=== PATIENT | female | born 1950 | race Caucasian/White ===

== ENCOUNTER 2016-05-27 15:52 | Emergency (ER) | payer MEDICARE, BC ==
--- NOTE | 2016-05-27 17:46 | Emergency Department Record ---
History of Present Illness - General Chief Complaint: Fall Injury Stated Complaint: FALL Time Seen by Provider: 05/27/16 15:58 Source: Patient Mode of Arrival: EMS Limitations: No limitations - History of Present Illness Initial Comments: pt had dialysis today and afterward had anear syncope where she dropped to the ground and injured her foot. she states this has happened to her before after dialysis. Complaint: Fall Onset/Timin -: Hour(s) Fall From: Standing When Fall Occurred: Just prior to arrival Fall Witnessed: Yes, by bystander Place Fall Occurred: Home Loss of Consciousness: Unsure Prolonged Down Time?: No Symptoms Prior to Fall: None Location - Extremities: Left: Foot Severity: Moderate Severity scale (1-10): 7 Quality: Aching Context: Other Associated Symptoms: Denies - [place] Coma Scale Eye Response: (4) Open spontaneously Motor Response: (6) Obeys commands Verbal Response: (5) Oriented Nancy Total: 15 - Related Data Home Medications Medication Instructions Recorded Confirmed Last Taken Aspirin [Aspirin EC] 81 mg PO DAILY 05/27/16 05/27/16 Unknown Atorvastatin Calcium [Lipitor] 20 mg PO DAILY 05/27/16 05/27/16 Unknown Calcitriol 0.25 mcg PO DAILY 05/27/16 05/27/16 Unknown Fluvoxamine Maleate [Fluvoxamine 200 mg PO BID 05/27/16 05/27/16 Unknown Maleate ER] Folic Acid/Vit Bcomp,C [Renal 0.8 mg PO DAILY 05/27/16 05/27/16 Unknown Vitamin Tablet] Isosorbide Mononitrate [Imdur] 30 mg PO DAILY 05/27/16 05/27/16 Unknown Levothyroxine Sodium [Synthroid] 50 mcg PO DAILY 05/27/16 05/27/16 Unknown Metoprolol Succinate 12.5 mg PO DAILY 05/27/16 05/27/16 Unknown Midodrine HCl [Midodrine HCl] 10 mg PO ASDIR 05/27/16 05/27/16 Unknown Pantoprazole Sodium [Protonix] 40 mg PO BID 05/27/16 05/27/16 Unknown Pregabalin [Lyrica] 150 mg PO DAILY 05/27/16 05/27/16 Unknown Allergies Allergy/AdvReac Type Severity Reaction Status Date / Time Penicillins Allergy HIVES Verified 05/27/16 16:12 Travel Screening - Travel/Exposure Within Last 30 Days Have you traveled within the last 30 days?: No Review of Systems Reviewed: No additional complaints except as noted below Constitutional: Reports: As per HPI. Denies: Chills, Fever, Malaise, Night sweats, Weakness, Weight change Eyes: Reports: As per HPI. Denies: Eye discharge, Eye pain, Photophobia, Vision change ENT: Reports: As per HPI. Denies: Congestion, Dental pain, Ear pain, Epistaxis , Hearing loss, Throat pain Respiratory: Reports: As per HPI. Denies: Cough, Dyspnea, Hemoptysis, Stridor, Wheezes Cardiovascular: Reports: As per HPI. Denies: Arrhythmia, Chest pain, Dyspnea on exertion, Edema, Murmurs, Orthopnea, Palpitations, Paroxysmal nocturnal dyspnea, Rheumatic Fever, Syncope Endocrine: Reports: As per HPI. Denies: Fatigue, Heat or cold intolerance, Polydipsia, Polyuria Gastrointestinal: Reports: As per HPI. Denies: Abdominal pain, Constipation, Diarrhea, Hematemesis, Hematochezia, Melena, Nausea, Vomiting Genitourinary: Reports: As per HPI. Denies: Abnormal menses, Discharge, Dyspareunia, Dysuria, Frequency, Hematuria, Incontinence, Retention, Urgency Musculoskeletal: Reports: As per HPI. Denies: Arthralgia, Back pain, Gout, Joint swelling, Myalgia, Neck pain Skin: Reports: As per HPI. Denies: Bruising, Change in color, Change in hair/ nails, Lesions, Pruritus, Rash Neurological: Reports: As per HPI. Denies: Abnormal gait, Confusion, Headache, Numbness, Paresthesias, Seizure, Tingling, Tremors, Vertigo, Weakness Psychiatric: Reports: As per HPI. Denies: Anxiety, Auditory hallucinations, Depression, Homicidal thoughts, Suicidal thoughts, Visual hallucinations Hematological/Lymphatic: Reports: As per HPI. Denies: Anemia, Blood Clots, Easy bleeding, Easy bruising, Swollen glands Past Medical History - SOCIAL HISTORY Smoking Status: Never smoker Alcohol Use: None Drug Use: None - RESPIRATORY Hx Respiratory Disorders: No - CARDIOVASCULAR Hx Cardio Disorders: Yes Hx Abnormal EKG: Yes Hx Chest Pain: Yes Hx Heart Attack: Yes Hx Hypertension: Yes - NEURO Hx Neuro Disorders: No - GI Hx GI Disorders: Yes Hx Reflux: Yes - Hx Genitourinary Disorders: Yes Hx Renal Disease: Yes - ENDOCRINE Hx Endocrine Disorders: Yes Hx Diabetes: Yes - MUSCULOSKELETAL Hx Musculoskeletal Disorders: No - PSYCH Hx Psych Problems: Yes Hx Anxiety: Yes - HEMATOLOGY/ONCOLOGY Hx Hematology/Oncology Disorders: Yes Family Medical History Any Significant Family History?: No Physical Exam - General General Appearance: Alert, Oriented x3, Cooperative, Mild distress - Head Head exam: Normal inspection - Eye Eye exam: Normal appearance, PERRL, EOMI Pupils: Normal accommodation - ENT ENT exam: Normal exam, Mucous membranes moist, Normal external ear exam, Normal orophraynx Ear exam: Normal external inspection. negative: External canal tenderness Nasal Exam: Normal inspection. negative: Discharge, Sinus tenderness Mouth exam: Normal external inspection, Tongue normal Teeth exam: Normal inspection. negative: Dental caries Throat exam: Normal inspection. negative: Tonsillar erythema, Tonsillar exudate - Neck Neck exam: Normal inspection, Full ROM. negative: Tenderness - Respiratory Respiratory exam: Normal lung sounds bilaterally. negative: Respiratory distress - Cardiovascular Cardiovascular Exam: Regular rate, Normal rhythm, Normal heart sounds - GI/Abdominal GI/Abdominal exam: Soft, Normal bowel sounds. negative: Tenderness - Rectal Rectal exam: Deferred - exam: Deferred - Extremities Extremities exam: Normal capillary refill, Tenderness, Other (fistula present). negative: Full ROM Image of Feet: 1 - tender, charcot foot - Back Back exam: Reports: Normal inspection, Full ROM. Denies: Muscle spasm, Rash noted, Tenderness - Neurological Neurological exam: Alert, CN II-XII intact, Normal gait, Oriented X3 - Psychiatric Psychiatric exam: Normal affect, Normal mood - Skin Skin exam: Dry, Intact, Normal color, Warm Course Vital Signs 05/27/16 16:18 Temperature 97.5 F L Pulse Rate [ 82 Pulse Ox Probe] Respiratory 16 Rate Blood Pressure 85/54 [Right Arm] Pulse Ox 100 - Reevaluation(s) Reevaluation #1: 05/27/16 19:03 d/w dr hunter Medical Decision Making - Management Options MDM Management: Additional Work-up Planned (e.g. ADM/Transfer/OP Study) - Data Complexity MDM Data: Labs Ordered and/or Reviewed, X-Ray Ordered and/or Reviewed - Lab Data Result diagrams: 05/27/16 16:29 05/27/16 16:29 - Radiology Data Radiology results: Report reviewed, Image reviewed Disposition Disposition: Transfer Clinical Impression: Dialysis patient Bimalleolar fracture of left ankle Qualifiers: Encounter type: initial encounter Fracture type: closed Qualified Code(s): S82.842A - Displaced bimalleolar fracture of left lower leg, initial encounter for closed fracture Syncope Qualifiers: Syncope type: unspecified Qualified Code(s): R55 - Syncope and collapse Disposition: Acute Care Hospital Transfer Transfer To: [facility] Reason For Transfer: needs orthopedics and nephrology Accepting Physician: dr hunter Time Discussed w/Accepting Physician: 19:03 Forms: Patient Portal Access
--- NOTE | 2016-05-27 19:08 | Emergency Department Record ---
History of Present Illness - General Chief Complaint: Fall Injury Stated Complaint: FALL Time Seen by Provider: 05/27/16 15:58 Source: Patient Mode of Arrival: EMS - History of Present Illness Onset/Timin -: Hour(s) Fall From: Standing When Fall Occurred: Just prior to arrival Fall Witnessed: Yes, by bystander Place Fall Occurred: Home Loss of Consciousness: Unsure Prolonged Down Time?: No Symptoms Prior to Fall: None Location - Extremities: Left: Foot Severity: Moderate Severity scale (1-10): 7 Quality: Aching Context: Other Associated Symptoms: Denies - [place] Coma Scale Eye Response: (4) Open spontaneously Motor Response: (6) Obeys commands Verbal Response: (5) Oriented Alvis[place] Total: 15 - Related Data Home Medications Medication Instructions Recorded Confirmed Last Taken Aspirin [Aspirin EC] 81 mg PO DAILY 05/27/16 05/27/16 Unknown Atorvastatin Calcium [Lipitor] 20 mg PO DAILY 05/27/16 05/27/16 Unknown Calcitriol 0.25 mcg PO DAILY 05/27/16 05/27/16 Unknown Fluvoxamine Maleate [Fluvoxamine 200 mg PO BID 05/27/16 05/27/16 Unknown Maleate ER] Folic Acid/Vit Bcomp,C [Renal 0.8 mg PO DAILY 05/27/16 05/27/16 Unknown Vitamin Tablet] Isosorbide Mononitrate [Imdur] 30 mg PO DAILY 05/27/16 05/27/16 Unknown Levothyroxine Sodium [Synthroid] 50 mcg PO DAILY 05/27/16 05/27/16 Unknown Metoprolol Succinate 12.5 mg PO DAILY 05/27/16 05/27/16 Unknown Midodrine HCl [Midodrine HCl] 10 mg PO ASDIR 05/27/16 05/27/16 Unknown Pantoprazole Sodium [Protonix] 40 mg PO BID 05/27/16 05/27/16 Unknown Pregabalin [Lyrica] 150 mg PO DAILY 05/27/16 05/27/16 Unknown Allergies Allergy/AdvReac Type Severity Reaction Status Date / Time Penicillins Allergy HIVES Verified 05/27/16 16:12 Travel Screening - Travel/Exposure Within Last 30 Days Have you traveled within the last 30 days?: No Review of Systems Constitutional: Reports: As per HPI. Denies: Chills, Fever, Malaise, Night sweats, Weakness, Weight change Eyes: Reports: As per HPI. Denies: Eye discharge, Eye pain, Photophobia, Vision change ENT: Reports: As per HPI. Denies: Congestion, Dental pain, Ear pain, Epistaxis , Hearing loss, Throat pain Respiratory: Reports: As per HPI. Denies: Cough, Dyspnea, Hemoptysis, Stridor, Wheezes Cardiovascular: Reports: As per HPI. Denies: Arrhythmia, Chest pain, Dyspnea on exertion, Edema, Murmurs, Orthopnea, Palpitations, Paroxysmal nocturnal dyspnea, Rheumatic Fever, Syncope Endocrine: Reports: As per HPI. Denies: Fatigue, Heat or cold intolerance, Polydipsia, Polyuria Gastrointestinal: Reports: As per HPI. Denies: Abdominal pain, Constipation, Diarrhea, Hematemesis, Hematochezia, Melena, Nausea, Vomiting Genitourinary: Reports: As per HPI. Denies: Abnormal menses, Discharge, Dyspareunia, Dysuria, Frequency, Hematuria, Incontinence, Retention, Urgency Musculoskeletal: Reports: As per HPI. Denies: Arthralgia, Back pain, Gout, Joint swelling, Myalgia, Neck pain Skin: Reports: As per HPI. Denies: Bruising, Change in color, Change in hair/ nails, Lesions, Pruritus, Rash Neurological: Reports: As per HPI. Denies: Abnormal gait, Confusion, Headache, Numbness, Paresthesias, Seizure, Tingling, Tremors, Vertigo, Weakness Psychiatric: Reports: As per HPI. Denies: Anxiety, Auditory hallucinations, Depression, Homicidal thoughts, Suicidal thoughts, Visual hallucinations Hematological/Lymphatic: Reports: As per HPI. Denies: Anemia, Blood Clots, Easy bleeding, Easy bruising, Swollen glands Past Medical History - SOCIAL HISTORY Smoking Status: Never smoker Alcohol Use: None Drug Use: None - RESPIRATORY Hx Respiratory Disorders: No - CARDIOVASCULAR Hx Cardio Disorders: Yes Hx Abnormal EKG: Yes Hx Chest Pain: Yes Hx Heart Attack: Yes Hx Hypertension: Yes - NEURO Hx Neuro Disorders: No - GI Hx GI Disorders: Yes Hx Reflux: Yes - Hx Genitourinary Disorders: Yes Hx Renal Disease: Yes - ENDOCRINE Hx Endocrine Disorders: Yes Hx Diabetes: Yes - MUSCULOSKELETAL Hx Musculoskeletal Disorders: No - PSYCH Hx Psych Problems: Yes Hx Anxiety: Yes - HEMATOLOGY/ONCOLOGY Hx Hematology/Oncology Disorders: Yes Family Medical History Any Significant Family History?: No Physical Exam - General Limitations: No limitations Course Vital Signs 05/27/16 05/27/16 16:18 17:47 Temperature 97.5 F L Pulse Rate [ 82 85 Pulse Ox Probe] Respiratory 16 16 Rate Blood Pressure 85/54 85/54 [Right Arm] Pulse Ox 100 100 - Reevaluation(s) Reevaluation #1: 05/27/16 19:07 pt has refused any pain medication Medical Decision Making - Lab Data Result diagrams: 05/27/16 16:29 05/27/16 16:29 Disposition Clinical Impression: Dialysis patient Bimalleolar fracture of left ankle Qualifiers: Encounter type: initial encounter Fracture type: closed Qualified Code(s): S82.842A - Displaced bimalleolar fracture of left lower leg, initial encounter for closed fracture Syncope Qualifiers: Syncope type: unspecified Qualified Code(s): R55 - Syncope and collapse Disposition: Acute Care Hospital Transfer Forms: Patient Portal Access
[2016-05-27] MEDS ORDERED: HYDROMORPHONE HCL 1 MG/ML CPJ IM ONE (19:20)
[2016-05-27] MEDS ORDERED: PROMETHAZINE HCL 25 MG/ML VIAL IM ONE (19:20)
--- NOTE | 2016-05-31 08:02 | RADIOLOGY REPORT ---
EXAM: LEFT FOOT HISTORY: INJURY. TECHNIQUE: Three views of the left foot were performed. FINDINGS: There are fracture deformities of the medial and lateral malleoli. There is underlying osteopenia. There is severe peripheral vascular disease. IMPRESSION: 1. BIMALLEOLAR FRACTURE DEFORMITIES. 2. SEVERE OSTEOPENIA AND PERIPHERAL VASCULAR DISEASE. JOB NUMBER: [id number] MTDD
--- NOTE | 2016-05-31 08:05 | RADIOLOGY REPORT ---
EXAM: LEFT ANKLE HISTORY: PAIN. TECHNIQUE: Three views of the left ankle were performed. FINDINGS: There is osteopenia. There is bimalleolar fracture deformity. There is mild lateral subluxation of the talus. IMPRESSION: 1. BIMALLEOLAR FRACTURE DEFORMITY WITH LATERAL SUBLUXATION OF THE TALUS. THERE IS ASSOCIATED SOFT TISSUE SWELLING. 2. OSTEOPENIA AND SOFT TISSUE SWELLING. JOB NUMBER: [id number] MTDD
== END 2016-05-27 20:44 | disposition short-term general hospital (02) ==
LOC: ER 15:52
DX: S82.842A Displaced bimalleolar fracture of left lower leg, initial encounter for closed fracture (principal); R55 Syncope and collapse; I12.0 Hypertensive chronic kidney disease with stage 5 chronic kidney disease or end stage renal disease; E11.22 Type 2 diabetes mellitus with diabetic chronic kidney disease; N18.6 End stage renal disease; I25.2 Old myocardial infarction; W19.XXXA Unspecified fall, initial encounter; Y92.009 Unspecified place in unspecified non-institutional (private) residence as the place of occurrence of the external cause
CPT/HCPCS: 29505; 99285 ×2; 96372; 73610; 73630; J1170; J2550